=== PATIENT | female | born 1990 | race Caucasian/White ===

== ENCOUNTER 2023-04-16 12:05 | Outpatient (CLI) | payer OTHER, SELFPAY ==
[2023-04-16 12:36] VITALS: BMI 24.8
[2023-04-16 12:39] VITALS: BP 149/75; PULSE 62; TEMP 37
[2023-04-16 12:43] VITALS: BP 124/63; PULSE 62
--- NOTE | 2023-04-25 16:19 | OB.TRI.NOTE ---
HPI - General General Date of Admission: 04/16/23 Date of Service: 04/16/23 Chief Complaint: decel in office HPI Narrative MONROE PERRY, is a 32 F who presents at 33 1/7 weeks from office for decleration. Patient usually gets care in [place] but was in office in [place] and decels noted. Sent here for monitoring. PFSH PFSH Home Medications Zoloft 150 mg PO DAILY 04/16/23 [History Last Taken 04/15/23 09:00 150mg] ferrous sulfate 325 mg (65 mg iron) tablet (iron) 325 mg PO QODAY 04/16/23 [History Last Taken 04/14/23 17:00 325 mg] vit no.95-ferrous fumarate 28 mg-folic acid 800 mcg tablet () 1 tab PO DAILY 04/16/23 [History Last Taken 04/16/23 08:00 1 TAB] Allergy/AdvReac Type Severity Reaction Status Date / Time No Known Allergies Allergy Verified 04/16/23 14:39 NST FHR Rate Baby A Baseline: 130 Variability:: Moderate Accelerations:: 15 x 15 Decelerations:: Variable NST Reactive:: Yes FHR Category:: Category II Uterine Activity:: no regular ctxs Assessment & Plan (1) 32 weeks gestation of : PLAN: 32-year-old high risk multigravida presented from the office with decelerations. Nonstress test done due to IUGR. decelerations noted here as well. However overall reactive with decelerations and moderate variability. Patient left AGAINST MEDICAL ADVICE to go to tertiary care center and be closer to her family since she is not planning to deliver locally in [place]. Follow up per primary ob provider. (2) IUGR (intrauterine growth restriction) affecting care of mother:
== END 2023-04-16 16:17 | disposition left against medical advice (07) ==
LOC: WPOUT 12:22 → WP 12:31
PROVIDERS: Referring Provider Advanced Practice Midwife; Visit Provider Advanced Practice Midwife
DX: O36.5930 Maternal care for other known or suspected poor fetal growth, third trimester, not applicable or unspecified (principal); Z3A.33 33 weeks gestation of pregnancy
CPT/HCPCS: 59025; 59050; 99221; G0378